=== PATIENT | male | born 1975 | race American Indian/Alaskan Native ===

== ENCOUNTER 2020-09-25 11:13 | Emergency (ER) | payer SELFPAY ==
[2020-09-25 11:46] VITALS: BP 135/96
[2020-09-25] MEDS ORDERED: TETANUS,DIPH,PERTUSS(ACELL) VACCINE 0.5 ML SYRINGE IM ONE (12:36)
[2020-09-25] MEDS ORDERED: FLUORESCEIN 1 MG STRIP OP ONE (12:36)
[2020-09-25] MEDS ORDERED: TETRACAINE 0.5% OPHTH SOLN 4ML OU ONE (12:36)
--- NOTE | 2020-09-25 12:38 | Event Note ---
ED Screening Note Date of service: 09/25/20 Time: 12:36 ED Screening Note: 44-year-old male patient presents emergency department with complaints of painful foreign body sensation in the left eye, photosensitivity, and blurred vision starting today. Patient states he was working with machinery when a small piece of metal flew into his eye. Patient does not wear contacts. Cannot recall last tetanus immunization. General: Awake, appropriately interactive. Wearing sunglasses. Eyes: Left eye irritation. Neck: Supple. Full range of motion intact. Cardiovascular: Normal peripheral perfusion. Pulmonary: No respiratory distress. Patient is speaking normally without use of accessory muscles. Skin: No apparent rashes or lesions. Neurological: No facial asymmetry. Speech is clear. Follows commands. Patient is alert and oriented. Musculoskeletal: Moves all four extremities spontaneously with normal range of motion. Psych: Cooperative. Appropriate mood and affect. I have greeted and performed a focused rapid initial assessment of this patient. A comprehensive ED assessment and evaluation of the patient, analysis of all test results, and completion of the medical decision-making process will be conducted by additional ED providers. This initial assessment/diagnostic orders/clinical plan/treatment(s) is/are subject to change based on patients health status, clinical progression and re-assessment. Further treatment and workup at subsequent clinical provider's discretion. Patient/guardian urged not to elope from the ED as their condition may be serious if not clinically assessed and managed.
[2020-09-25] MEDS ORDERED: TOBRADEX 0.3-0.1% OPHTH SUSP 2.5ML OU ONE (13:56)
--- NOTE | 2020-09-25 13:56 | Emergency Department Report ---
ED Eye Problem HPI - General Chief complaint: Eye Problems Stated complaint: EYE INJURY Time Seen by Provider: 09/25/20 13:03 Source: patient Mode of arrival: Ambulatory Limitations: No Limitations - History of Present Illness Initial comments: Patient is a pleasant 44-year-old that comes to the ER after getting some metal shavings while at work in his left eye. He has a sensation of foreign body. His EOMs are intact. The globe is intact. Pupils equal and reactive. There is no discharge. Patient is holding his left eye shut on arrival to [facility]. Patient's tetanus is not up-to-date. Patient denies any other injury. Patient was not welding. Patient does not wear contact lenses or have eye implants. chief complaint: eye injury -: Sudden, hour(s) Onset Description: sudden Location: left eye Place: work If Injury: other Eye Symptoms: foreign body sensation Severity: mild Consistency: constant Associated Symptoms: none Treatments Prior to Arrival: none - Related Data Previous Rx's Medication Instructions Recorded Last Taken Type Tobramycin/Dexamethasone [Tobradex 1 - 2 drop OP Q4HR #1 bottle 09/25/20 Unknown Rx Eye Drops 0.3/0.1%] Allergies Allergy/AdvReac Type Severity Reaction Status Date / Time No Known Allergies Allergy Verified 09/25/20 11:46 ED Review of Systems ROS: Stated complaint: EYE INJURY Other details as noted in HPI Comment: All other systems reviewed and negative ED Past Medical Hx - Past Medical History Hx Hypertension: Yes Hx Asthma: Yes - Surgical History Past Surgical History?: No - Family History Family history: no significant - Social History Smoking Status: Current Every Day Smoker Substance Use Type: Cocaine, Marijuana - Medications Home Medications: Home Medications Medication Instructions Recorded Confirmed Last Taken Type Tobramycin/Dexamethasone [Tobradex 1 - 2 drop OP Q4HR #1 bottle 09/25/20 Unknown Rx Eye Drops 0.3/0.1%] ED Physical Exam - General Limitations: No Limitations General appearance: alert, in no apparent distress - Head Head exam: Present: atraumatic, normocephalic - Eye Eye exam: Present: normal appearance - Expanded Eye Exam Expanded Eyelids: Normal Inspection: Right Pupils: Regular, Round: Bilateral Sclera/Conjunctival: Foreign Body: Left (Has a sensation of foreign body in his left eye), Exudate: Bilateral (None) - ENT ENT exam: Present: mucous membranes moist - Neck Neck exam: Present: normal inspection - Respiratory Respiratory exam: Present: normal lung sounds bilaterally. Absent: respiratory distress - Cardiovascular Cardiovascular Exam: Present: regular rate, normal rhythm. Absent: systolic murmur, diastolic murmur, rubs, gallop - GI/Abdominal GI/Abdominal exam: Present: soft, normal bowel sounds - Rectal Rectal exam: Present: deferred - Extremities Exam Extremities exam: Present: normal inspection - Back Exam Back exam: Present: normal inspection - Neurological Exam Neurological exam: Present: alert, oriented X3 - Psychiatric Psychiatric exam: Present: normal affect, normal mood - Skin Skin exam: Present: warm, dry, intact, normal color. Absent: rash ED Course Vital Signs 09/25/20 09/25/20 11:46 17:07 Temperature 98.1 F Pulse Rate 78 78 Respiratory 14 18 Rate Blood Pressure 135/96 [Left] O2 Sat by Pulse 100 20 L Oximetry - Eye Procedure Alcaine Drops Administered: Yes (Tetracaine) Eye FB Removal: other (No foreign body visualized) Eye Irrigated w/ Saline (ccs): 1,000 Antibiotic Oinment/Drps Admin: left eye Progress: Tetracaine was used to anesthetize the eye. Fluorescein strip was used with the Mckeon lamp. I see no foreign body or abrasion. There is no uptake of fluorescein stain. Conjunctiva is red of the left eye but patient has been rubbing it. Given his feeling of foreign body sensation a liter of normal saline was infused through the Sanjeev's lens. This provided immediately relief for the patient. TobraDex was applied. ED Medical Decision Making - Medical Decision Making Patient's eye was stained with fluorescein see procedure no foreign body visualized Given his complaint of sensation of foreign body eye was irrigated using Sanjeev's lens with 1 L saline. Patient felt much better and was on his phone after the irrigation. Post irrigation Globe remains intact. There is no drainage. EOMs are intact pupils equal and reactive. There is no discharge. Visual acuity is normal Patient being discharged home with discharge plan of care including ophthalmology follow-up. Patient verbalizes understanding of discharge plan of care. Vital Signs 09/25/20 09/25/20 11:46 17:07 Temperature 98.1 F Pulse Rate 78 78 Respiratory 14 18 Rate Blood Pressure 135/96 [Left] O2 Sat by Pulse 100 20 L Oximetry On discharge patient is ambulatory, nonill nontoxic, taking p.o. and texting on his cell phone. - Differential Diagnosis Rule out foreign body, abrasion Critical care attestation.: If time is entered above; I have spent that time in minutes in the direct care of this critically ill patient, excluding procedure time. ED Disposition Clinical Impression: Sensation of foreign body in eye Disposition: DC-01 TO HOME OR SELFCARE Is pt being admited?: No Does the pt Need Aspirin: No Condition: Stable Instructions: Corneal Abrasion, [id number] Additional Instructions: warm compresses to eye med as ordered today follow up with eye MD Monday for recheck referral below motrin or tylenol for pain Prescriptions: Tobramycin/Dexamethasone [Tobradex Eye Drops 0.3/0.1%] 1 - 2 drop OP Q4HR #1 bottle Referrals: KUNAL CLEMENT MD [Staff Physician] - 3-5 Days Time of Disposition: 16:31
[2020-09-25] MEDS ORDERED: SODIUM CHLORIDE 0.9% 1000 ML 1,000 ML IV ONE (14:42)
== END 2020-09-25 17:07 | disposition home or self-care (01) ==
LOC: ED 11:13
DX: T15.01XA Foreign body in cornea, right eye, initial encounter (principal); I10 Essential (primary) hypertension; J45.909 Unspecified asthma, uncomplicated; F17.200 Nicotine dependence, unspecified, uncomplicated; F12.90 Cannabis use, unspecified, uncomplicated; F14.90 Cocaine use, unspecified, uncomplicated; Z79.899 Other long term (current) drug therapy; X58.XXXA Exposure to other specified factors, initial encounter; Y93.89 Activity, other specified; Y92.89 Other specified places as the place of occurrence of the external cause; Y99.8 Other external cause status
CPT/HCPCS: 90471; 90715; 96360; 99284; J7030